=== PATIENT | female | born 1980 | race Caucasian/White ===

== ENCOUNTER 2017-12-10 16:19 | Emergency (ER) | payer OTHER ==
[2017-12-10 17:05] VITALS: BP 154/94
--- NOTE | 2017-12-10 17:17 | UC ---
Respiratory Complaint HPI - HPI Summary HPI Summary: Pt c/o nasal and chest congestion that bgan 1 week ago and has worsened. Pt has tried OTC cough and cold medications with no improvement in symptoms. Pt has hx of asthma and smoking. Pt states she has Bronchitis - History of Current Complaint Hx Obtained From: Patient Hx Last Menstrual Period: 2 WKS AGO ?: No Onset/Duration: Gradual Onset, Lasting Days - 10, Worse Since - onset Severity Initially: Mild Severity Currently: Mild Pain Intensity: 0 Character: Cough: Nonproductive Aggravating Factors: Deep Breaths, Recumbent Position Alleviating Factors: Bronchodilator Associated Signs And Symptoms: Positive: URI, Nasal Congestion Related History: Seasonal Allergies - does not take antihistamine - Risk Factors Pulmonary Embolism Risk Factors: Smoking Cardiac Risk Factors: Smoking Pseudomonas Risk Factors: Negative Tuberculosis Risk Factors: Smoking <Sheyla Corral NP - Last Filed: 12/10/17 17:23> <Prachi Cueto - Last Filed: 12/10/17 18:43> - History of Current Complaint Chief Complaint: UCGeneralIllness Stated Complaint: COUGH,HEAVY CHEST Time Seen by Provider: 12/10/17 16:57 - Allergies/Home Medications Allergies/Adverse Reactions: Allergies Allergy/AdvReac Type Severity Reaction Status Date / Time amoxicillin [From Augmentin] Allergy Rash Verified 12/10/17 16:53 clavulanic acid Allergy Rash Verified 12/10/17 16:53 [From Augmentin] PMH/Surg Hx/FS Hx/Imm Hx Previously Healthy: Yes - Surgical History Surgical History: None - Family History Known Family History: Positive: Cardiac Disease - Social History Occupation: Employed Full-time Lives: With Family Alcohol Use: None Substance Use Type: None Smoking Status (MU): Heavy Every Day Tobacco Smoker Type: Cigarettes Amount Used/How Often: 1/2 pack daily Length of Time of Smoking/Using Tobacco: 20 YRS Have You Smoked in the Last Year: Yes <Sheyla Corral NP - Last Filed: 12/10/17 17:23> Review of Systems Constitutional: Negative Skin: Negative Eyes: Negative ENT: Negative Respiratory: Cough Cardiovascular: Negative Gastrointestinal: Negative Genitourinary: Negative Motor: Negative Neurovascular: Negative Musculoskeletal: Negative Neurological: Negative Psychological: Negative Is Patient Immunocompromised?: No All Other Systems Reviewed And Are Negative: Yes <Sheyla Corral NP - Last Filed: 12/10/17 17:23> Physical Exam Triage Information Reviewed: Yes Appearance: Well-Appearing Vital Signs: Initial Vital Signs Temp 98 F 12/10/17 17:00 Pulse 101 12/10/17 17:00 Resp 24 12/10/17 17:00 BP 154/94 12/10/17 17:00 Pulse Ox 99 12/10/17 17:00 Vital Signs Reviewed: Yes Eye Exam: Normal ENT Exam: Other ENT: Positive: Nasal congestion Neck exam: Normal Respiratory Exam: Normal Cardiovascular Exam: Normal Musculoskeletal Exam: Normal Neurological Exam: Normal Psychological Exam: Normal Skin Exam: Normal <Sheyla Corral NP - Last Filed: 12/10/17 17:23> Vital Signs: Initial Vital Signs Temp 98 F 12/10/17 17:00 Pulse 101 12/10/17 17:00 Resp 24 12/10/17 17:00 BP 154/94 12/10/17 17:00 Pulse Ox 99 12/10/17 17:00 <Prachi Cueto - Last Filed: 12/10/17 18:43> Diagnostic Evaluation - Laboratory O2 Sat by Pulse Oximetry: 99 <Sheyla Corral NP - Last Filed: 12/10/17 17:23> Respiratory Course/Dx - Course Course Of Treatment: Pt requested antibiotics for what she states is bronchitis. - Differential Dx/Diagnosis Differential Diagnosis/HQI/PQRI: Bronchitis Provider Diagnoses: Bronchitis <Sheyla Corral NP - Last Filed: 12/10/17 17:23> Discharge - Sign-Out/Discharge Documenting (check all that apply): Discharge - Billing Disposition and Condition Condition: STABLE Disposition: HOME <Sheyla Corral NP - Last Filed: 12/10/17 17:23> - Billing Disposition and Condition Condition: STABLE Disposition: HOME <Prcahi Cueto - Last Filed: 12/10/17 18:43> - Discharge Plan Condition: Stable Disposition: HOME Prescriptions: Azithromycin TAB* [Zithromax TAB (Z-TALITA) 250 mg #6 tabs] 2 tab PO .TODAY, THEN 1 DAILY #1 talita Benzonatate CAP* [Tessalon 100 MG CAP*] 100 mg PO Q8H PRN #21 cap PRN Reason: Cough predniSONE TAB* [Deltasone TAB*] 20 mg PO DAILY #4 tab Patient Education Materials: Acute Bronchitis (ED) Referrals: Keon Conley MD [Primary Care Provider] - If Needed Additional Instructions: Please follow up with your PCP or return to clinic as needed. Attestation Statement User Type: Provider - I was available for consult. This patient was seen by the [facility]. The patient was not presented to, seen by, or examined by me. -Amber <Prachi Cueto - Last Filed: 12/10/17 18:43>
== END 2017-12-10 17:26 | disposition home or self-care (01) ==
LOC: UCCORT 16:19
DX: J40 Bronchitis, not specified as acute or chronic (principal); J45.909 Unspecified asthma, uncomplicated; F17.210 Nicotine dependence, cigarettes, uncomplicated; R09.81 Nasal congestion; Z88.0 Allergy status to penicillin; Z88.1 Allergy status to other antibiotic agents
CPT/HCPCS: 99202; G0463